=== PATIENT | male | born 1960 | race Caucasian/White ===

== ENCOUNTER → 2016-10-08 | Day surgery (SDC) | payer OTHER ==
[~2016-10-08] VITALS: Ht 177.8 cm; Wt 72.6 kg
[~2016-10-08] MED LIST: PENICILLIN VK500 MG PO; PERCOCET 325 MG1 TA5 PO
--- NOTE | ~2016-10-08 | O ---
[place], [place] OPERATIVE NOTE NAME: ESTELITA ROJAS UNIT #: [id number] ROOM: DOCTOR: VICTORIANO GRANDE MD BIRTHDATE: [birth year] DOS: 10/08/2016 This is a patient who is undergoing a dental procedure by Dr. Navarro in the operating room on 10/08/2016. I was operating in an adjacent room and was called to Dr. Navarro's room to examine the patient following presumed traumatic intubation. The patient had bleeding from the right oropharynx. Further inspection showed partial avulsion of the right tonsil, presumably from a traumatic intubation. Dr. Navarro asked me for consultation to manage this complication. Because of the partial avulsion of the right tonsil, my feeling was that the patient required right tonsillectomy and control of right oropharyngeal hemorrhage. DESCRIPTION OF PROCEDURE: The patient was draped in a standard fashion for oral surgery. Mouth was exposed with a McIvor retractor. Right tonsillectomy was performed using electrical cautery. Bleeding from the oropharynx was controlled with electrical cautery. Gastric contents were decompressed after adequate hemostasis was obtained. The patient was returned back over to Dr. Navarro for completion of his dental extractions. VICTORIANO GRANDE MD CM:OPRECORD:OPERATIVE NOTE [id number] VICTORIANO GRANDE MD 10/10/16 0935 interface
--- NOTE | ~2016-10-08 | O ---
[place], [place] OPERATIVE NOTE NAME: ESTELITA ROJAS UNIT #: [id number] ROOM: DOCTOR: JOSE GOULDBRENDEN BIRTHDATE: [birth year] DOS: PREOPERATIVE DIAGNOSES: Nonrestorable mandibular dentition and anxiety. POSTOPERATIVE DIAGNOSES: Nonrestorable mandibular dentition and anxiety. ANESTHESIA: General anesthesia with endotracheal intubation. FLUIDS: Minimal. COMPLICATIONS: Tonsillectomy, right-side. CONDITION: To PACU, stable. ESTIMATED BLOOD LOSS: Minimal. DESCRIPTION OF PROCEDURE: The patient was brought to the OR and placed in supine position. IV and EKG lines were placed. After an apparent uncomplicated intubation as I was placing the throat pack, I noted a small area of hemorrhage in the right tonsillar pillar area. I consulted with Dr. Foreman. After consultation we decided at that most prudent treatment would be to remove the tonsil on the right side. Dr. Foreman performed that treatment. After treatment throat pack was placed. The patient was prepped and draped for remainder of the procedures. Risks and benefits were explained to the patient prior to surgery. Clinical exam and x-rays taken determined nonrestorable mandibular dentition. PROCEDURES PERFORMED: Complete extraction of teeth #20, 21, 22, 23, 24, 25, 26, 27, 28, 29, 30. Full thickness flaps in lower right, lower left quadrants with moderate alveoplasty. Sutured with 4-0 Vicryl. Lavaged x 2. Throat pack removed. Tonsillar pillar appeared clean and no bleeding was evident. The patient left the OR in good condition and went to the PACU. The patient and the patient's sister were notified of the tonsillectomy following surgery. The patient has a significant history of alcohol and smoking and tissue will be sent for biopsy. [place], [place] OPERATIVE NOTE NAME: ESTELITA ROJAS UNIT #: [id number] ROOM: DOCTOR: BRENDEN GARCIA DMD BIRTHDATE: [birth year] BRENDEN GARCIA DMD CM:OPRECORD:OPERATIVE NOTE [id number] BRENDEN GARCIA DMD 10/10/16 1120 interface
[2016-10-08 10:00] VITALS: BP 127/70
[2016-10-08 13:02] VITALS: BP 142/100
[2016-10-08 13:15] VITALS: BP 130/836
[2016-10-08 13:30] VITALS: BP 132/74
[2016-10-08 13:45] VITALS: BP 127/70
[2016-10-08 14:22] VITALS: BP 117/72
== END | disposition home or self-care (01) ==
LOC: SDC 10-02 12:30
DX: K02.9 Dental caries, unspecified (principal); K00.7 Teething syndrome; I10 Essential (primary) hypertension; F17.210 Nicotine dependence, cigarettes, uncomplicated; Z98.890 Other specified postprocedural states; F41.9 Anxiety disorder, unspecified